=== PATIENT | female | born 1975 | race Caucasian/White ===

== ENCOUNTER 2024-06-20 10:56 | Outpatient (AMB) | payer MEDICAID, SELFPAY ==
--- NOTE | 2024-06-20 11:01 | A.OFFVIS_ITS ---
Vital Signs 06/20/24 11:14 Height 5 ft 3 in Weight 199 lb 15.348 oz BMI 35.4 BP 118/80 Blood Pressure Location Rt brachial Pulse 80 Pulse Source Pulse Oximeter Pulse Oximetry (%) 95 Oxygen Delivery Method Room Air Intake Visit Reasons: RA/cm Intake Note: Patient presents for RA. Feeling pain in both legs since I was young. I take lots of medications for the pain and it helps sometimes. Library Media Technician Required: Yes Library Media Technician Services: Library Media Technician Present Library Media Technician Name: Jin Hannah Allergies No Known Allergies Allergy (Verified 06/20/24 11:48) Medication List - Last Reconciled 06/20/24 by Yasmeen Canchola MD acetaminophen 650 mg PO TID PRN amitriptyline 25 mg PO DAILY bupropion HCl XL 300 mg PO QAM chlorthalidone 25 mg PO DAILY clotrimazole 1% appl topical BID clotrimazole-betamethasone 1-0.05 % appl topical cyclobenzaprine 5 mg PO BEDTIME diclofenac sodium 75 mg PO DAILY PRN diclofenac sodium 1% grams topical QID PRN famotidine 20 mg PO BID gabapentin 600 mg PO TID hydrocortisone 2.5% ND BID ibuprofen mg PO ketoconazole 2% topical loperamide 2 mg PO BID PRN loratadine 10 mg PO DAILY PRN lorazepam 0.5 mg PO DAILY PRN meloxicam 7.5 mg PO DAILY oxycodone 10 mg PO QID promethazine 25 mg PO Q4H PRN scopolamine base (Transderm-Scop) 1 patch topical Q3D simethicone 80 mg PO Q6H PRN sodium chloride 0.65% (Saline Mist) 1 spray intranasal sumatriptan succinate 100 mg PO PRN topiramate 100 mg PO DAILY white petrolatum (Petroleum Jelly, White topical) topical zolpidem 10 mg PO BEDTIME HPI Comments Details: This is a 48 year old female who was referred by Dr. Schultz for evaluation of elevated inflammatory markers. 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 She has had diffuse pain since she was walking. She states that she has diffuse pain everywhere especially in her lower back and from her knees down. She has swelling from her knees down. She has varicose veins and had injections into the veins in the past but they have recurred. She also follows up with a neurologist for neuropathy. Was evaluated by Dr. Schultz of and had multiple injections in the spine. She also had a left hip arthroplasty last year and developed a DVT perioperatively. She took Eliquis for a few months. She is unaware of any family history of an autoimmune rheumatic disease. 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 Surgical History (Updated 06/20/24 @ 11:30 by Yasmeen Canchola MD) H/O thyroidectomy History of hip replacement Family History (Updated 06/20/24 @ 11:13 by AKILA Granger) Father Heart disease Hypertension Mother Heart disease Social History (Updated 06/20/24 @ 11:13 by AKILA Granger) Housing: House Alcohol intake: never Patient Tobacco Use Status: Never used Tobacco Female Reproductive History Menstrual Total pregnancies: 3 Full term: 2 Ab induced: 1 Review of Systems Const Reports fatigue and Reports weakness Eyes Reports no additional complaints Musc Reports back pain, Reports arthralgias, Reports joint swelling, Reports numbness, Reports radiating pain into limb and Reports tingling Neuro Reports numbness, Reports tingling and Reports weakness Psych Reports abnormal sleep pattern and Reports anxiety Endo Reports fatigue Physical Exam Vital Signs: Last Vital Signs Pulse 80 06/20/24 11:14 BP 118/80 06/20/24 11:14 Pulse Ox 95 06/20/24 11:14 Oxygen Delivery Method Room Air 06/20/24 11:14 BMI result Body Mass Index 35.4 Const General: cooperative, healthy appearing and comfortable Nutritional Appearance: obese Orientation/consciousness: patient oriented x3 Limitations: no limitations HEENT Head: Yes normocephalic and Yes atraumatic Mouth: moist mucous membranes Resp Effort & Inspection: normal respiratory effort and able to speak in complete sentences Auscultation: clear to auscultation bilaterally Cardio Rate: regular rate Rhythm: regular rhythm Skin General skin exam: no rashes or lesions noted Neuro General: patient oriented x3 Extrem Other: No active synovitis both hands, wrists, elbows and shoulders Multiple fibromyalgia tender points Normal nailfold capillaroscopy Diffuse edema the knees down Varicose veins both legs Results Reviewed Results Reviewed: Labs 02/2024 RF/CCP MOSES negative CRP 15.2 (<8.0) ESR 51 ? Hepatitis-B surface antigen negative? Hepatitis B core antibody negative? Hepatitis a antibody negative? Hepatitis B core IgM negative Hepatitis B surface antibody negative? L-spine MRI Comparison 03/12 Impression: Degenerative changes of the lumbar spine are seen from L3 through S1 as above.? At the L5-S1 level there is abutment of the exiting right-sided nerve root.? This is unchanged from the previous study? No central canal stenosis is seen at this time Assessment & Plan Assessment & Plan (1) CRP elevated: Code(s): R79.82 - Elevated C-reactive protein (CRP) Category: Medical Plan: This is a 48-year-old female who was referred by Dr. Schultz for evaluation of elevated inflammatory markers. Upon Evaluation I do not see any evidence of an autoimmune rheumatic disease. There is definitely a component of fibromyalgia to her symptoms. Advised patient to consider evaluation by a psychotherapist, try a different CPAP mask. Follow-up as needed Plan I spent 30 minutes reviewing patient's chart, evaluating patient, counseling patient and documenting in the chart Coding Level of Care Code New Pt Level 3 (39850) Diagnoses CRP elevated R79.82
[2024-06-20 11:14] VITALS: BP 118/80; PULSE 80; O2SAT 95; BMI 35.4
== END 2024-06-20 11:47 | disposition home or self-care (01) ==
PROVIDERS: PCP Internal Medicine; Referring Provider Physical Medicine & Rehabilitation; Visit Provider Student in an Organized Health Care Education/Training Program
DX: R79.82 Elevated C-reactive protein (CRP) (principal)
CPT/HCPCS: 99203

== ENCOUNTER → 2024-06-20 10:56 | Outpatient (BNVA) | payer MEDICAID, SELFPAY | PROVIDERS: PCP Internal Medicine; Referring Provider Physical Medicine & Rehabilitation; Visit Provider Student in an Organized Health Care Education/Training Program | DX: R79.82 Elevated C-reactive protein (CRP) (principal) | CPT/HCPCS: 99202 ==

== ENCOUNTER 2024-07-09 10:00 | Outpatient (RCR) | payer MEDICAID, SELFPAY | END 2024-09-04 09:00 | disposition home or self-care (01) | LOC: HO.PT 10:00 | PROVIDERS: PCP Internal Medicine; Visit Provider Surgery | DX: M99.05 Segmental and somatic dysfunction of pelvic region (principal) | CPT/HCPCS: 97110; 97112; 97140; 97162 ==